=== PATIENT | male | born 2000 | race Asian ===

== ENCOUNTER 2024-07-03 20:00 | Emergency (ER) | payer SELFPAY ==
[2024-07-03 20:06] VITALS: BP 145/95
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
[2024-07-03] MEDS: MOTRIN 600 MG PO (22:27)
[2024-07-03 22:28] VITALS: BP 154/103
== END 2024-07-03 22:36 | disposition home or self-care (01) ==
LOC: EMR 20:00
PROVIDERS: EMERGENCY PHYSICIAN Student in an Organized Health Care Education/Training Program; FAMILY PHYSICIAN Family Medicine
DX: S16.1XXA Strain of muscle, fascia and tendon at neck level, initial encounter (principal); V49.40XA Driver injured in collision with unspecified motor vehicles in traffic accident, initial encounter; Y92.410 Unspecified street and highway as the place of occurrence of the external cause
CPT/HCPCS: 99284; 70450; 72125